=== PATIENT | female | born 2005 | race Caucasian/White ===

== ENCOUNTER 2023-10-23 10:36 | Day surgery (SDC) | payer OTHER ==
[~2023-10-23] VITALS: Ht 165.1 cm; Wt 109.9 kg
[2023-10-23] MEDS ORDERED: ALBU90OI INH (11:24)
[2023-10-23] MEDS ORDERED: QVAR REDIHALE10.6 G2 IH (11:25)
--- NOTE | 2023-10-23 13:09 | NUR ---
10/23/23 1309 Thi Childers 20ML OF ROPIVACAINE 0.5% MIXED AND VERIFIED WITH 0.1ML OF EPI (1MG/ML) TO MAKE ROPIVACAINE 0.5% WITH EPI 1:200,000 FOR INJECTION AT THE OPSITE BY DR RANGEL. ROSA-AREA PREPPED BY [email or web address], ABDOMINAL AREA PREPPED BY [email or web address].
--- NOTE | 2023-10-23 14:37 | NUR ---
10/23/23 2467 AYAZ KRAUSE PT IN BED, VERY TALKATIVE, MOM AT BEDSIDE. PT VERY PLEASANT. -01/13.
[2023-10-23 14:42] VITALS: BP 131/99
== END 2023-10-23 15:07 | disposition home or self-care (01) ==
LOC: ORSCSDS 10:36
PROVIDERS: Obstetrics & Gynecology
PROC: 0UT74ZZ Resection of Bilateral Fallopian Tubes, Percutaneous Endoscopic Approach (ICD-10-PCS; principal; 2023-10-23 12:00)
DX: Z30.2 Encounter for sterilization (principal); Q50.5 Embryonic cyst of broad ligament; J45.909 Unspecified asthma, uncomplicated; E03.9 Hypothyroidism, unspecified; Z79.899 Other long term (current) drug therapy; E66.01 Morbid (severe) obesity due to excess calories; Z68.41 Body mass index [BMI] 40.0-44.9, adult
CPT/HCPCS: 88302; A9270; J0171; J0330; J1100; J1885; J2250; J2371; J2405; J2704; J2795; J3010; J7120